=== PATIENT | female | born 1985 | race African-American/Black ===

== ENCOUNTER 2018-03-19 08:10 | Day surgery (SDC) | payer BC ==
[2018-03-19] MEDS ORDERED: MIDAZOLAM 1 MG/ML 2 ML INJ ×3 (09:49→09:50)
[2018-03-19] MEDS ORDERED: FENTAnyl 50 MCG/ML VIAL (09:49)
== END 2018-03-19 12:01 | disposition home or self-care (01) ==
LOC: GIL 08:10
DX: K64.8 Other hemorrhoids (principal)
CPT/HCPCS: 45380; 84703; 88305